=== PATIENT | female | born 1995 | race Caucasian/White ===

== ENCOUNTER → 2017-03-12 | Day surgery (SDC) | payer OTHER ==
--- NOTE | 2017-03-11 16:38 | GHP ---
[f rep st] PREOP HISTORY AND PHYSICAL DATE OF ADMISSION: 03/12/2017 DATE OF SURGERY: 03/12/2017. CHIEF COMPLAINT: Right ankle pain. HISTORY OF PRESENT ILLNESS: The patient is a 21-year-old with previous sprains of her ankle, with c ontinued ankle pain. PAST MEDICAL HISTORY: Positive for asthma. PAST SURGICAL HISTORY: None. SOCIAL HISTORY: Negative for tobacco use. MEDICATIONS: The patient takes no medications. ALLERGIES: The patient has no drug allergies. FAMILY HISTORY: Noncontributory. PHYSICAL EXAMINATION: HEENT: Head is normocephalic. Pupils equal, round, reactive to light. Extr aocular eye movements intact. NECK: Supple. No JVD or lymphadenopathy. CHEST: Clear to ausculta tion. HEART: Regular rate and rhythm. No murmurs or gallops. ABDOMEN: Soft, nontender, nondiste nded. GENITAL: Deferred. RECTAL: Deferred. BREASTS: Deferred. EXTREMITIES: Reveals laxity to inversion stress of the right ankle. She has approximately 10 degrees gastroc contracture. She is tender along the anterior medial talus. ASSESSMENT: 1. Right ankle instability. 2. Right gastrocnemius contracture. PLAN: The patient is scheduled to undergo a right lateral ankle ligament reconstruction, gastroc re cession, and arthrotomy and debridement of a talar osteophyte. /[id number]/MODL
[~2017-03-12] MED LIST: ACETAMINOPHEN 500 MG TAB PO PRN; ALBUTEROL 3 ML DEYVIAL IH PRN; BUPIVACAINE 0.5% 30 ML SDV ONE; CEFAZOLIN 1 GM/DEXTROSE/50 ML BAG IV ONE; CEFAZOLIN 2 GM/DEXTROSE/100 ML BAG IV ONE; DEXAMETHASONE 4 MG/ML VIAL ONE; HYDROCODONE/APAP 5/325 TAB PO PRN; LIDOCAINE 1% 2 ML INJ ID PRN; LIDOCAINE 1% 2 ML INJ ONE; LR 1,000 ML IV ONE; LR 500 ML IV PRN; NALOXONE HCL 0.4 MG/ML INJ IVP PRN; ONDANSETRON 4 MG/2 ML VIAL IVP PRN; PROMETHAZINE HCL 25 MG/ML INJ IVP PRN; PROPOFOL/EMULSION 500 MG/50 ML BOTTLE IV ONE; ROPIVACAINE HCL 150 MG/30 ML INJ ONE; epHEDrine SULFATE 10 MG/ML SYR ONE; fentaNYL 100 MCG/2 ML INJ IVP PRN; fentaNYL 100 MCG/2 ML INJ ONE
--- NOTE | 2017-03-12 07:53 | PDANEPAE ---
ANE History of Present Illness 21 yo female with R ankle instability. ANE Past Medical History - Cardiovascular History Hx Hypertension: No Hx Arrhythmias: No Hx Chest Pain: No Hx Coronary Artery / Peripheral Vascular Disease: No Hx CHF / Valvular Disease: No Hx Palpitations: No - Pulmonary History Hx COPD: No Hx Asthma/Reactive Airway Disease: Yes Hx Recent Upper Respiratory Infection: No Hx Oxygen in Use at Home: No - Neurologic History Hx Cerebrovascular Accident: No Hx Seizures: No Hx Dementia: No - Endocrine History Hx Diabetes: No - Renal History Hx Renal Disorders: No - Liver History Hx Hepatic Disorders: No - Neurological & Psychiatric Hx Hx Neurological and Psychiatric Disorders: No - Cancer History Hx Cancer: No - Congenital Disorder History Hx Congenital Disorders: No - GI History Hx Gastrointestinal Disorders: No - Chronic Pain History Chronic Pain: Yes (ANKLE PAIN) ANE Review of Systems Review of Systems: No URI/fever x2 weeks - Exercise capacity METS (RN): 5 METS - Systems Constitutional: Reports: no symptoms Cardiac: Reports: no symptoms Respiratory: Reports: no symptoms ANE Patient History - Allergies Allergies/Adverse Reactions: No Known Allergies Allergy (Unverified 09/28/11 07:21) - Home Medications Home Medications: No Medications [No Meds] 1 ea MISC 09/28/11 [Last Taken 03/12/17] - NPO status NPO Since - Liquids (Date): 03/11/17 NPO Since - Liquids (Time): 23:45 NPO Since - Solids (Date): 03/11/17 NPO Since - Solids (Time): 22:30 - Anes Hx Hx Anesthesia Complications (with details): No anesthesia in the past - Smoking Hx Smoking Status: Former smoker Marijuana use: Yes - Alcohol Use Alcohol Use: None - Family Anes Hx Family Anes Hx: neg - N/A Family Hx Anesthesia Complications: NEG ANE Labs/Vital Signs - Vital Signs Blood Pressure: 110/83 Heart Rate: 66 Respiratory Rate: 16 O2 Sat (%): 97 Height: 153.67 cm Weight: 61.689 kg ANE Physical Exam - Airway Neck exam: FROM Mallampati Score: Class 2 Mouth exam: normal dental/mouth exam - Pulmonary Pulmonary: no respiratory distress, clear to auscultation - Cardiovascular Cardiovascular: regular rate and rhythym - ASA Status ASA Status: I, II ANE Anesthesia Plan Anesthesia Plan: spinal Regional Anesthesia: single shot NB, popliteal SNB
--- NOTE | 2017-03-12 08:21 | POSTOPPROG ---
Post Op Note Date of Operation: 03/12/17 Surgeon: Fortino Rodriguez Anesthesia: Spinal, Other (Specify) (Popliteal and saphenous nerve blocks) Pre-op Diagnosis: R ankle instability, R gastroc contracture, R ankle impingement Post-op Diagnosis: same Procedure: R lat ankle ligament reconstruction, R Gastroc recession, R ankle arthrotom Inf/Abcess present in the surg proc area at time of surgery?: No EBL: Minimal Complications: None
--- NOTE | 2017-03-12 10:54 | POSTANESTH ---
Post Anesthetic Evaluation Cardiovascular Status: Normal, Stable Respiratory Status: Normal, Stable Level of Consciousness/Mental Status: Can Participate in Eval, Alert and Oriented Pain Control: Adequate, Prn Tx Ordered Nausea/Vomiting Control: Adequate, Prn Tx Ordered (Pt moving R leg with no problems. L leg still immobile secondary to spinal dose for surgery.)
[2017-03-12 11:03] VITALS: TEMP 97.3
[2017-03-12 12:35] VITALS: BP 94/65; PULSE 62; RESP 16; O2SAT 98
--- NOTE | 2017-03-12 14:46 | GOP ---
[f rep st] OPERATIVE REPORT DATE OF OPERATION: 03/12/2017 SURGEON: Fortino Rodriguez MD ANESTHESIA: Spinal plus popliteal and saphenous nerve blocks performed by the anesthesiologist at m y request for postoperative pain management. PREOPERATIVE DIAGNOSIS: 1. Right ankle instability. 2. Right ankle impingement. 3. Right talar neck osteophyte. 4. Right gastrocnemius contracture. POSTOPERATIVE DIAGNOSIS: 1. Right ankle instability. 2. Right ankle impingement. 3. Right talar neck osteophyte. 4. Right gastrocnemius contracture. PROCEDURE PERFORMED: FINDINGS: ESTIMATED BLOOD LOSS: Minimal. INDICATIONS: Patient is a 21-year-old with history of persistent right ankle pain. Clinically and radiographically, she was noted to have ankle instability and impingement. Based on her persistence of symptoms refractory to non-operative treatment, she is interested in pursuing operative treatmen t. From an operative standpoint, ankle ligament reconstruction, gastrocnemius recession, ankle arth rotomy and debridement was recommended. The patient acknowledged she understood the potential risks of the operation, including but not limited to, bleeding, infection, neurovascular damage leading t o loss of limb or limb function, persistence of pain, functional limitations despite operative treat ment, and anesthetic risks. She acknowledged she understood the potential risks, planned procedure, and postoperative plan well, and had all questions answered prior to surgery. She gave her consent for the operative procedure. DESCRIPTION OF PROCEDURE: The patient was brought to the operating room after popliteal saphenous n erve blocks were performed in preop holding by the Anesthesiologist at my request for postoperative pain management. She was brought into the operating room, where spinal anesthetic was administered. She was placed in a supine position. A tourniquet was placed on the right thigh, and the patient was transferred to a left lateral decubitus position on operative table with beanbag support, axilla ry roll, and padding bony prominences. The right lower extremity was prepped and draped in standard sterile fashion. After marking the lateral incision and Dontrell wrap exsanguination, tourniquet was in flated to 250. An oblique incision was made starting just posterior to the distal fibula and curvin g gently in the lateral hindfoot. Skin and subcutaneous tissue were sharply incised. Sharp dissect ion was carried down to the periosteal level. Full-thickness soft tissue flaps were developed off t he anterior talofibular ligament identifying and leaving the extensor retinaculum intact. A small i ncision was made dorsal to the peroneal tendons. A low-lying muscle belly on the peroneus brevis wa s noted and debrided. The calcaneofibular ligament was identified and felt to be in satisfactory co ndition for primary advancement. Calcaneofibular ligament was detached off its fibular insertion. At the fibular insertion, a 4.5 mm drill bit was utilized to create a trough in the fibula. This wa s deepened with a curette. Two 2.0 mm drill holes were made connecting from the lateral aspect of t he distal fibula with this 4.5 hole. A #1 PDS suture was placed through one of the 2.0 drill holes, out the 4.5 hole, through the calcaneal fibular ligament, back to 4.5 drill hole and out the other 2.0 drill hole for later advancement. The anterior talofibular ligament was then identified and vertically incised. Hypertrophic capsule along the inferior aspect of this was sharply debrided. Using a #1 PDS suture, the anterior talofib ular ligament was advanced onto itself in a "[id number]" fashion. The extensor retinaculum was then advanced into the periosteum of the fibula at multiple points with 0 PDS suture and the calcan eofibular ligament. The suture ends were secured. The ankle was examined and found to have excelle nt stability. Deep tissue was closed with 2-0 Vicryl suture in interrupted fashion, subcutaneous ti ssue closed with 3-0 Vicryl suture in interrupted fashion. Skin closed with 4-0 nylon interrupted s utures. The beanbag was then deflated and the patient carefully transferred to a supine position. Attention was then directed toward the medial ankle. A small incision was made along the anterior m edial aspect of the ankle. Saphenous vein was identified and retracted out of harm's way. The caps ule was longitudinally incised. Hypertrophic capsule and synovium were sharply debrided. The promi nent osteophyte on the talar neck was identified and found to be impinged with dorsiflexion of the a nkle. Utilizing a rongeur, the prominent osteophyte was removed. The capsule was loosely reapproxi mated with 2-0 Vicryl suture in interrupted fashion. Subcutaneous tissue closed with 3-0 Vicryl sut ure in interrupted fashion, skin closed with 4-0 nylon interrupted sutures. Attention was then directed towards the gastroc recession. A longitudinal incision was made along t he medial aspect of the lower leg at the mid aspect of the gastrocnemius muscle. Skin and subcutane ous tissue were sharply incised. The saphenous vein was identified and retracted out of harm's way. The superficial posterior compartment fascia was incised in line with the skin incision. The inte rval between the gastroc and soleus was bluntly dissected. Utilizing a speculum for retraction, the anterior aponeurosis of the gastroc tendon was transversely released. Favorable dorsiflexion with the knee extended was then achieved. The subcutaneous tissue was closed with 3-0 Vicryl suture in i nterrupted fashion. Skin was closed with 4-0 nylon interrupted sutures. The wounds were dressed wi th sterile Adaptic, 4 x 4, and Webril, and the leg was placed in a below-knee splint. Patient tolerated the procedure well and was taken to the recovery room, extubated, in stable condit ion postoperatively. All sponge, needle, and instrument counts were reported to be correct. OPERATION PERFORMED: 1. Right lateral ankle ligament reconstruction. 2. Right ankle arthrotomy and debridement. 3. Excision right talar neck osteophyte. 4. Right gastrocnemius recession. DRAINS: None. COMPLICATIONS: None. PLAN: The patient will be discharged home, nonweightbearing of the operative extremity. /[id number]/MODL
== END | disposition home or self-care (01) ==
LOC: FSGY 07:06
PROVIDERS: ATTEND Orthopaedic Surgery Foot and Ankle Surgery
PROC: 0SCF0ZZ Extirpation of Matter from Right Ankle Joint, Open Approach (ICD-10-PCS; principal; 2017-03-12 08:30)
PROC: 0MQQ0ZZ Repair Right Ankle Bursa and Ligament, Open Approach (ICD-10-PCS; principal; 2017-03-12 08:30)
PROC: 0LSN0ZZ Reposition Right Lower Leg Tendon, Open Approach (ICD-10-PCS; principal; 2017-03-12 08:30)
DX: M77.51 Other enthesopathy of right foot and ankle (principal); M25.371 Other instability, right ankle; M25.771 Osteophyte, right ankle; M62.461 Contracture of muscle, right lower leg; J45.909 Unspecified asthma, uncomplicated
CPT/HCPCS: J0690; J1100; J2704; J2795; J3010